=== PATIENT | male | born 1955 ===

== ENCOUNTER 2019-09-15 08:33 | Day surgery (SDC) | payer OTHER ==
[~2019-09-15] VITALS: Ht 193 cm; Wt 112.3 kg
[2019-09-15] MEDS ORDERED: CHLORHEXIDINE 15 ML UDC MM STA (09:24)
[2019-09-15] MEDS ORDERED: LACTATED RINGERS 1,000 ML IV SCH (09:24)
[2019-09-15 09:25] VITALS: BP 152/95
[2019-09-15 09:33] VITALS: BP 152/95
[2019-09-15] MEDS ORDERED: MIDAZOLAM 1 MG/ML, 2ML ONE (09:42)
[2019-09-15] MEDS ORDERED: FENTANYL PF 250 MCG/5ML ONE (09:43)
[2019-09-15] MEDS ORDERED: VANCOMYCIN 1,000 MG ONE (09:48)
[2019-09-15] MEDS ORDERED: BUPIVACAINE/PF 0.5% ONE (09:48)
[2019-09-15] MEDS ORDERED: EPINEPHRINE 1 MG/ML, 1ML ONE (09:48)
[2019-09-15] MEDS ORDERED: BUPIVACAINE/PF-EPI 0.25% 1:200K ONE (09:48)
[2019-09-15] MEDS ORDERED: THROMBIN 5,000 UNIT VIAL TP ONE (09:48)
[2019-09-15] MEDS ORDERED: PLEASE ENTER ALLERGIES MC SCH (10:00)
[2019-09-15] MEDS ORDERED: ROCURONIUM 10MG/ML,5ML ONE (10:15)
[2019-09-15] MEDS ORDERED: DEXAMETHASONE 4 MG/ML, 1ML ONE ×2 (10:15→10:17)
[2019-09-15] MEDS ORDERED: PROPOFOL 10 MG/ML, 20ML ONE (10:15)
[2019-09-15] MEDS ORDERED: PHENYLEPHRINE 10 MG/ML ONE (10:17)
[2019-09-15] MEDS ORDERED: SUCCINYLCHOLINE 20 MG/ML, 10ML ONE (10:17)
[2019-09-15] MEDS ORDERED: CEFAZOLIN 1,000 MG ONE (10:17)
[2019-09-15] MEDS ORDERED: SUGAMMADEX 200 MG/2 ML IVPush ONE (11:54)
[2019-09-15] MEDS ORDERED: ONDANSETRON 2MG/ML, 2ML ONE (11:54)
[2019-09-15] MEDS ORDERED: LABETALOL 5MG/ML, 20ML IV PRN (12:30)
[2019-09-15] MEDS ORDERED: EPHEDRINE 50 MG/ML, 1ML IVPush PRN (12:30)
[2019-09-15] MEDS ORDERED: MEPERIDINE/PF 25MG/0.5ML IVPush PRN (12:30)
[2019-09-15] MEDS ORDERED: DIPHENHYDRAMINE 50 MG/ML, 1ML IVPush PRN (12:30)
[2019-09-15] MEDS ORDERED: ONDANSETRON 2MG/ML, 2ML IVPush PRN (12:30)
[2019-09-15] MEDS ORDERED: FENTANYL PF 100 MCG/2ML IV PRN (12:30)
[2019-09-15] MEDS ORDERED: MIDAZOLAM 1 MG/ML, 2ML IV PRN (12:30)
[2019-09-15] MEDS ORDERED: PROMETHAZINE 25 MG/ML, 1ML IVPush PRN (12:30)
[2019-09-15] MEDS ORDERED: DIAZEPAM 5 MG/ML, 2ML IVPush PRN (12:30)
[2019-09-15] MEDS ORDERED: OXYcodone 5 MG/5 ML ORAL.SOL UDC PO PRN (12:30)
[2019-09-15] MEDS ORDERED: PROMETHAZINE 12.5 MG SUPP PR PRN (12:30)
[2019-09-15] MEDS ORDERED: ALBUTEROL SULFATE 2.5 MG/3 ML NPPB PRN (12:30)
[2019-09-15] MEDS ORDERED: HYDROmorphone 1 MG/ML, 1ML INJ IVPush PRN (12:30)
[2019-09-15] MEDS ORDERED: hydrALAzine 20 MG/ML, 1ML IV PRN (12:30)
[2019-09-15] MEDS ORDERED: HYDROcodone/APAP 10/325 MG TABLET PO PRN ×2 (14:30)
== END 2019-09-15 16:40 | disposition home or self-care (01) ==
LOC: OUT 08:33
PROVIDERS: ATTEND Orthopaedic Surgery Orthopaedic Surgery of the Spine
DX: M48.061 Spinal stenosis, lumbar region without neurogenic claudication (principal); Z11.59 Encounter for screening for other viral diseases; M71.38 Other bursal cyst, other site; M54.16 Radiculopathy, lumbar region; M54.17 Radiculopathy, lumbosacral region; K21.9 Gastro-esophageal reflux disease without esophagitis; G40.909 Epilepsy, unspecified, not intractable, without status epilepticus; Z79.82 Long term (current) use of aspirin; Z79.1 Long term (current) use of non-steroidal anti-inflammatories (NSAID); Z79.891 Long term (current) use of opiate analgesic; Z79.899 Other long term (current) drug therapy; Z88.8 Allergy status to other drugs, medicaments and biological substances
CPT/HCPCS: 36415; 63047; 63267; 72100; 72120; 87635; J0171; J0330; J0690; J1100; J2250; J2370; J2405; J2704; J3010; J3370; J7120